=== PATIENT | male | born 1945 | race Caucasian/White ===

== ENCOUNTER → 2024-03-08 | Outpatient (CLI) | payer OTHER ==
--- NOTE | 2024-04-03 07:52 | CT ---
EXAMINATION TYPE: CT abdomen pelvis wo con DATE OF EXAM: 03/08/2024 COMPARISON: No comparison available on downtime PACS. INDICATION: Bladder mass DLP: 677 mGycm, Automated exposure control for dose reduction was used. CONTRAST: 0 mL of Isovue 300. Study performed without Oral Contrast TECHNIQUE: Axial images were obtained from above the diaphragm to the pubic rami in the axial plane a t 5 mm thick sections. Reconstructed images are reviewed on the computer in the coronal plane. FINDINGS: Limited CT sections are obtained the lung bases. There is a 0.6 cm nodule right lung base. Series 4 i mage 1. A 0.7 cm nodules in the anterior left lung base. Series 4 image 1. There is a 1.3 cm nodule i n the posterior lateral right lung base. There is a 1.7 cm nodule posterior left lung base. There is an area of pleural thickening along the posterior lateral right lung base measuring 1 4 cm. An additi onal mass lung base measuring 0.6 cm, image 22. Recommend follow-up CT chest for complete evaluation of suspected metastases. Dense coronary artery calcification is present. CT ABDOMEN: Liver: A subtle 2.3 cm hypodensity within the right lobe liver near gallbladder fossa suspicious for metastatic lesion. Example image 36 series 3. Spleen: Normal Pancreas: Fatty infiltration is through the pancreas. Adrenal glands: The adrenal glands are normal. Gallbladder: Normal Kidneys: No masses are evident. No hydronephrosis is present. No cysts are present. No renal stones a re evident. Aorta: Vascular calcification is within the aorta. Inferior vena cava: Normal. CT PELVIS: Loops of bowel within the abdomen and pelvis are normal. Surgical changes are noted at the hepatic fl exure. There appears to be resection of the ascending. Scattered diverticuli are sigmoid colon Studie s without oral contrast limiting follow-up evaluation. Appendix: Not visualized. Correlate with the patient's surgical history Urinary bladder: There is a 2.3 cm soft tissue density anterior superior to the urinary bladder. Seri es 3 image 115. The anterior pelvic wall is thickened at this level. Some nodularity is anterior and inferior to this wall thickening. Example series 3 image 126 with a 1.0 and 2.3 cm nodule present. Th ere is some limitation on evaluation of the urinary bladder being hardening artifact from a left hip prosthesis. Genitourinary structures: Mild prominence of the prostate is present. Osseous structures: No suspicious lytic or sclerotic lesions. There is a lytic area with smooth incom plete margins posterior to the left hip acetabular component. IMPRESSION: 1. Multiple nodules within the visualized lung bases. Multiple metastatic lesions are suspected. CT c hest recommended for complete thorax evaluation. 2. Suspected metastatic lesion within the right lobe liver. 3. Wall thickening along the anterior pelvic wall with soft tissue densities both anterior and lawyer probate ior to the wall thickening. This is at or just above the urinary bladder level. Findings are suspicio us for neoplasm. 4. Lucency in posterior left acetabulum may be benign given the smooth borders. Neoplasm is not exclu ded. 5. Diverticulosis without acute diverticulitis.
== END | disposition home or self-care (01) ==
LOC: RADCTMAIN 11:00
PROVIDERS: ATTEND Urology
DX: D49.4 Neoplasm of unspecified behavior of bladder (principal); R91.8 Other nonspecific abnormal finding of lung field
CPT/HCPCS: 74176

== ENCOUNTER → 2024-04-22 | Outpatient (CLI) | payer MEDICARE, BC, OTHER ==
--- NOTE | 2024-04-25 00:23 | PE ---
EXAMINATION TYPE: PET CT fusion skull to thigh DATE OF EXAM: 04/22/2024 CLINICAL INDICATION:Male, 78 years old with history of C18.8 COLON CANCER; TECHNIQUE: Following the intravenous administration of 13.64 mCi of F-18 FDG, whole body images are performed from the skull base to the midthigh. Images are reviewed on the computer in the coronal, axial, and sagittal planes. Reconstructed rotating images are created on independent workstation and reviewed on the computer. A non-contrast CT is performed in conjunction with the PET scan. Glucose level 180 mg/dL CT DLP: 775.7 mGycm, Automated exposure control for dose reduction was used. COMPARISON: CT 03/08/2024, PET/CT None, MRI: None FINDINGS: Mediastinal SUV mean is 2.4. Hepatic parenchyma SUV mean is 2.6. SKULL BASE AND NECK: No suspicious radiotracer activity. Few scattered regions of favored physiologic uptake. CHEST, MEDIASTINUM, AND HILAR REGION: Multiple bilateral lung FDG avid pulmonary nodules. Examples include: Right lower lobe pulmonary nodule measuring 1.7 cm with a maximum SUV of 3.0. Left lower lobe pulmonary nodule measuring up to 2.4 cm with a maximum SUV of 10.2. Focal FDG uptake identified within the left pulmonary hilar nonenlarged lymph node with a maximum SUV of 5.1. Multiple subcentimeter mediastinal lymph nodes identified with no FDG activity above background. ABDOMEN AND PELVIS: Right inferior hepatic lobe 3.4 cm hypodense lesion with a maximum SUV of 16.3. Additional posterior right hepatic lobe focal region of SUV uptake measuring 5.7. No definitive CT co rrelate possibly related to noncontrast exam. Paracaval 7 mm short axis lymph node with a maximum SUV 5.1. Diffuse radiotracer uptake is identified throughout the rectum, sigmoid colon, and descending colon. Additional radiotracer uptake identified within the transverse colon and small bowel. No focal signif icant radiotracer uptake identified at the anastomotic site. Anterior lower abdominal wall FDG avid infiltrative mass demonstrated measuring grossly 7.5 x 4.8 cm with a maximum SUV of 25.1. There is a more focal nodular portion which extends into the peritoneum c lose to the anterior bladder wall with a maximum SUV of 23.6. Additional focal nodular separate porti on and 1 cm along the right anterior aspect extending into the peritoneum with a maximum SUV of 12.3. Focal FDG uptake identified within the lateral right aspect of the prostate gland with a maximum SUV of 5.2. Few nonenlarged left external iliac chain lymph nodes with a maximum SUV of 3.8. MUSCULOSKELETAL STRUCTURES: Well-defined lytic lesion involving the posterior aspect of the left acetabulum measuring 2.5 x 1.8 c m. This demonstrates peripheral FDG activity with a maximum SUV of 5.3. Additional scattered regions of uptake identified within the left acetabulum and left proximal femur with expanded ostial lysis appearance of the proximal left femur medial to the orthopedic hardware at the site of lesser trochanter with peripheral FDG activity with a maximum SUV of 7.3. Measures gross ly 4.6 x 3.8 cm. No other suspicious FDG avid osseous lesions identified. OTHER CT: Bilateral aphakia. Minimal mucosal thickening of the bilateral inferior maxillary sinuses w ith prior surgical intervention of the bilateral medial wall maxillary sinuses. Advanced atherosclero tic calcification of the bilateral carotid bulbs. Punctate metallic foreign bodies identified within the anterior neck soft tissues at the level of the cricoid cartilage. Thyroid is surgically absent ve rsus atrophic. Atherosclerotic calcification of the aorta and its branches. Advanced coronary arteria l calcifications. Aortic valvular calcifications. Small hiatal hernia. Postsurgical changes of the le ft femur from total hip arthroplasty. Multiple punctate few sigmoid diverticula. Post surgical change s with anastomosis from right total colectomy. Metallic densities identified within the posterior lef t hip/gluteal soft tissues. Degenerative changes of the visualized spine. Remote left-sided healing r ib fractures. IMPRESSION: 1. Findings of metastatic disease with multiple FDG avid pulmonary nodules, right inferior hepatic l obe FDG avid 3.4 cm metastatic lesion, and lower anterior abdominal wall FDG avid lesion. 2. Additional mildly FDG avid indeterminate left pulmonary hilum, paracaval, left external iliac jeannette in nonenlarged lymph nodes. Additional focal uptake within the posterior right hepatic lobe without C T correlate which may relate to additional metastasis. 3. Postsurgical changes from left total hip arthroplasty with few osteolytic lesions within the surr ounding acetabulum and proximal left femur with peripheral mild FDG activity. No other suspicious FDG avid osseous lesions. 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 Metastasis is not entirely excluded. Consider orthopedic consultation. 4. Mild focal FDG uptake within the right lateral prostate gland. This is indeterminate with prostat e cancer not excluded. Correlation with PSA values and consideration for MRI prostate is recommended. [facility], , 04/25/2024 12:21 AM
== END | disposition home or self-care (01) ==
LOC: RADPETMAIN 06:12
PROVIDERS: ATTEND Internal Medicine
DX: C18.8 Malignant neoplasm of overlapping sites of colon
CPT/HCPCS: 78815

== ENCOUNTER 2024-04-29 07:15 | Day surgery (SDC) | payer MEDICARE, BC, OTHER ==
[2024-04-29] MEDS ORDERED: HYDROmorphone 0.5 MG/0.5 ML SYRINGE IVP PRN (08:19)
[2024-04-29 09:03] LABS: Mean Platelet Volume 7.1; Platelet Count 265 k/uL (150-450)
[2024-04-29] MEDS: ALPRAZolam 0.25 MG TAB PO PRN (09:06)
[2024-04-29 09:09] VITALS: RESP 16
[2024-04-29 09:18] LABS: Prothrombin Time 10.5 sec (10.0-12.5)
[2024-04-29 09:34] LABS: African American GFR (CKD) 68 (>60 ml/min/1.73 sqM); Non-African American GFR(CKD) 59 (>60 ml/min/1.73 sqM)
[2024-04-29 09:57] VITALS: BP 163/65
[2024-04-29 10:39] VITALS: PULSE 52
--- NOTE | 2024-04-29 12:01 | US ---
ULTRASOUND GUIDED CORE BIOPSY LARGE ANTERIOR ABDOMINAL WALL METASTASES: CLINICAL HISTORY: Right anterior abdominal wall mass FINDINGS: The procedure was explained to the patient. The risks, complications, benefits and alternatives were discussed and any questions were answered. Informed consent was obtained. Patient was placed supin e on the ultrasound table and prepped and draped in the usual sterile fashion. Utilizing a 18 gauge needle, three passes were made into the question anterior abdominal wall mass. Patient was stable throughout the procedure. Pathology is pending. All elements of maximal barrier technique were utilized. IMPRESSION: 1. Successful ultrasound guided core biopsy large anterior abdominal wall mass. [facility], , 04/29/2024 11:50 AM
== END 2024-04-29 10:56 | disposition home or self-care (01) ==
LOC: RADPROMAIN 07:15
PROVIDERS: ATTEND Internal Medicine
DX: C79.89 Secondary malignant neoplasm of other specified sites (principal); C18.9 Malignant neoplasm of colon, unspecified; I10 Essential (primary) hypertension; Z79.82 Long term (current) use of aspirin; Z79.899 Other long term (current) drug therapy; Z79.02 Long term (current) use of antithrombotics/antiplatelets; Z79.890 Hormone replacement therapy; Z88.0 Allergy status to penicillin
CPT/HCPCS: 20206; 36415; 76942; 82565; 85049; 85610; 88305; 88341; 88342